=== PATIENT | female | born 1975 | race Native Hawaiian/Other Pacific Islander ===

== ENCOUNTER 2017-04-23 14:12 | Outpatient (CLI) | payer OTHER ==
[2017-04-23 14:29] LABS: PLATELET COUNT 215 K/uL (152-353)
[2017-04-23 15:19] LABS: POTASSIUM 4.3 mmol/L (3.6-5.2); SODIUM 141 mmol/L (136-145)
== END 2017-04-23 21:12 | disposition home or self-care (01) ==
LOC: LAB 14:12
PROVIDERS: Nurse Practitioner Family
DX: E03.8 Other specified hypothyroidism (principal); F41.8 Other specified anxiety disorders; F98.8 Other specified behavioral and emotional disorders with onset usually occurring in childhood and adolescence; G47.09 Other insomnia; E53.8 Deficiency of other specified B group vitamins; R79.89 Other specified abnormal findings of blood chemistry
CPT/HCPCS: 80053; 80061; 83036; 84436; 84443; 85027

== ENCOUNTER 2017-07-10 09:44 | Outpatient (CLI) | payer OTHER | END 2017-07-11 05:17 | disposition home or self-care (01) | LOC: MAMMO 09:44 | DX: Z12.31 Encounter for screening mammogram for malignant neoplasm of breast (principal) ==

== ENCOUNTER 2017-10-22 13:04 | Outpatient (CLI) | payer OTHER ==
[2017-10-22 13:41] LABS: POTASSIUM 4.6 mmol/L (3.6-5.2)
== END 2017-10-22 22:06 | disposition home or self-care (01) ==
LOC: LAB 13:04
PROVIDERS: Nurse Practitioner Family
DX: E03.8 Other specified hypothyroidism (principal); F41.8 Other specified anxiety disorders; E53.8 Deficiency of other specified B group vitamins; F98.8 Other specified behavioral and emotional disorders with onset usually occurring in childhood and adolescence; N95.8 Other specified menopausal and perimenopausal disorders; G47.09 Other insomnia
CPT/HCPCS: 80053; 80061; 82679; 83036; 84144; 84403; 84436; 84443

== ENCOUNTER 2018-03-19 18:21 | Emergency (ER) | payer OTHER ==
[~2018-03-19] VITALS: Ht 152.4 cm; Wt 68.0 kg
[2018-03-19 20:55] LABS: PLATELET COUNT 227 K/uL (152-353)
[2018-03-19 21:06] LABS: POTASSIUM 4.2 mmol/L (3.6-5.2); SODIUM 142 mmol/L (136-145)
[2018-03-19 21:55] VITALS: BP 127/81; TEMP 96.8
== END 2018-03-19 21:55 | disposition home or self-care (01) ==
LOC: ED 18:21
PROVIDERS: Family Medicine
DX: K56.7 Ileus, unspecified (principal); N39.0 Urinary tract infection, site not specified; R10.84 Generalized abdominal pain
CPT/HCPCS: 36415; 74022; 80053; 81000; 82150; 82553; 83605; 83690; 84484; 85027; 87086; 87088; 93005; 99283; J0696; J1885

== ENCOUNTER 2019-12-15 17:34 | Outpatient (CLI) | payer OTHER | END 2019-12-15 19:12 | disposition home or self-care (01) | LOC: RAD 17:34 | DX: M79.672 Pain in left foot (principal) ==

== ENCOUNTER 2020-11-29 16:13 | Outpatient (CLI) | payer OTHER | END 2020-11-29 22:20 | disposition home or self-care (01) | LOC: RAD 16:13 | PROVIDERS: ATTEND Nurse Practitioner Primary Care | DX: M54.2 Cervicalgia (principal) ==

== ENCOUNTER 2021-11-21 13:11 | Outpatient (CLI) | payer OTHER | END 2021-11-21 21:20 | disposition home or self-care (01) | LOC: MAMMO 13:11 | PROVIDERS: ATTEND Nurse Practitioner Family | DX: Z12.31 Encounter for screening mammogram for malignant neoplasm of breast (principal) ==